=== PATIENT | female | born 1960 | race Two or more races ===

== ENCOUNTER 2024-11-11 21:56 | Inpatient (IN) | payer OTHER ==
[~2024-11-11] VITALS: Ht 152.4 cm; Wt 83.0 kg
[2024-11-11] MEDS ORDERED: HUMULIN N100 UNIT/2 SUBCUTANEO (22:03)
[2024-11-11] MEDS ORDERED: GLIPIZIDE XL10 MG PO (22:04)
[2024-11-11] MEDS ORDERED: HORIZANT300 MG PO (22:06)
[2024-11-11] MEDS ORDERED: COZAAR25 MG PO (22:06)
[2024-11-11] MEDS ORDERED: SYNJARDY 12.5-1 EACH PO (22:06)
--- NOTE | 2024-11-11 22:07 | NUR ---
SE RECIBE PTE FEMENINA ALERTA Y ORIENTADA X3 EN AMBULANCIA REFIERE CELLULLITIS EN RODILLA R+, AREA CON ERITEMA Y EDEMA DESDE HACE CUATRO HICKS. SE MICHAEL S/V Y SE UBICA.
[2024-11-12] MEDS ORDERED: CIPROFLOXACIN IN 5 % DEXTROSE 400 MG/200 ML PIGGYBAG IV STA (00:17)
[2024-11-12] MEDS ORDERED: CIPROFLOXACIN IN 5 % DEXTROSE 400 MG/200 ML PIGGYBAG IV ONE (00:52)
--- NOTE | 2024-11-12 00:53 | NUR ---
SE ORIENTA A PTE SOBRE TX MEDICO ORDENADO POR . SE REALIZA [place] [facility] DE [facility] LYNETTE ORDEN MEDICA Y BAJO MEDIDAS ASEPTICAS. VENOPUNCION PATENTE BAJANDO IV FLUID POR REGULADOR. PTE PENDIENTE A ESTUDIO.
[2024-11-12 01:37] LABS: PH,URINE 5.5 (5.0-8.0); URINE APPEARANCE Clear; URINE BILIRRUBIN Negative (NEGATIVE); URINE BLOOD Negative; URINE COLOR Yellow; URINE KETONE Trace (NEGATIVE); URINE LEUKOCYTE Trace; URINE NITRATE Positive; URINE PROTEIN 30 (NEGATIVE); URINE UROBILINOGEN 0.2 E.U./dl
[2024-11-12 01:41] LABS: URINE EPITHELIAL CELLS 11.5 uL (0.0-38.8); URINE WBC 122.6 uL (0.0-23.2)
[2024-11-12 01:49] LABS: HEMOGLOBIN 9.2 g/dL (12.0-15.00); MEAN CELL VOLUME 80.2 fL (80.00-100.00); MEAN CORPUSCULAR HEMOGLOBIN 25.4 pg (27.00-32.0); MEAN CORPUSCULAR HGB CONC 31.6 g/dl (32.0-36.0); PLATELET COUNT 395 K/uL (150-450); RED BLOOD COUNT 3.62 M/uL (4.00-6.00); RED CELL DISTRIBUTION WIDTH 19.2 % (11.5-14.5)
[2024-11-12 01:57] LABS: INR < 0.93; PARTIAL THROMBOPLASTIN TIME 25.8 SECONDS (22.0-34.0); PROTHROMBIN TIME 10.1 SECONDS (9.0-11.5)
[2024-11-12 02:01] LABS: ALBUMIN 2.8 gm/dL (3.4-5.0); BILIRUBIN TOTAL 0.23 mg/dL (0.3-1.2); CALCIUM 9.2 mg/dL (8.5-10.1); CREATININE SERUM 1.51 mg/dL (0.55-1.02); GFR 34.48; GLOBULINA 4.5 G/DL (2.4-3.5); POTASSIUM 4.61 mEq/L (3.5-5.1); TOTAL PROTEIN 7.3 gm/dL (6.4-8.2)
[2024-11-12 02:20] LABS: URINE BACTERIA > 9821.5 uL (0.0-1933); URINE CAST 1.32 uL (0.0-1.40); URINE GLUCOSE >=1000 MG/DL (NEGATIVE); URINE RBC 1.6 uL (0.0-20.8)
[2024-11-12 02:28] LABS: ERYTHROCYTE SEDIMENTATION RATE > 130 mm/hr
--- NOTE | 2024-11-12 07:26 | NUR ---
SE RECIBE PACIENTE FEMENINA ALERTA Y ORIENTADA X 3 ESFERAS EN CAMA CON BARANDAS ELEVADAS POR SEGURIDAD. PRESENTANDO BUEN PATRON RESPIRATORIO. H/L EN BRAZO DERECHO AREA VÍCTOR DE EDEMA Y ERITEMA. PENDIENTE CONSULTA CON . SE MANTIENE EN OBSERVACION POR CAMBIOS EN CONDICION MEDICA.
--- NOTE | 2024-11-12 15:00 | NUR ---
SE RECIBE PACIENTE ALERTA Y ORIENTADA X3. LA MISMA EN S/L EN ROSCOEO KISHA # 18 PATENTE Y VÍCTOR DE DOLOR. PACINETE CONSULTADO CON IM POR CELULITIS EN YOSSI [place]
[2024-11-12] MEDS ORDERED: CIPROFLOXACIN IN 5 % DEXTROSE 400 MG/200 ML PIGGYBAG IV SCH (22:00)
[2024-11-12] MEDS ORDERED: VANCOMYCIN HCL 1,000 MG VIAL IV SCH (22:00)
[2024-11-13] MEDS ORDERED: 0.9 % SODIUM CHLORIDE 1,000 ML IV SCH (07:45)
[2024-11-13] MEDS ORDERED: ENOXAPARIN SODIUM 40 MG/0.4 ML SYRINGE SUBCUTANEO SCH (09:00)
[2024-11-13] MEDS ORDERED: FAMOTIDINE/PF 20 MG in 0.9 % SODIUM CHLORIDE 100 ML IV SCH (09:00)
[2024-11-13] MEDS ORDERED: CLINDAMYCIN PHOSPHATE 600 MG in 0.9 % SODIUM CHLORIDE 50 ML IV SCH (13:00)
[2024-11-13 13:05] LABS: CALCIUM 9.2 mg/dL (8.5-10.1); CREATININE SERUM 0.8 mg/dL (0.55-1.02); GFR 71.76; POTASSIUM 5.26 mEq/L (3.5-5.1)
[2024-11-13] MEDS ORDERED: LOSARTAN POTASSIUM 100 MG TABLET PO SCH (13:32)
[2024-11-13] MEDS ORDERED: ATORVASTATIN CALCIUM 20 MG TABLET PO SCH (13:35)
[2024-11-13] MEDS ORDERED: AMIODARONE HCL 200 MG TABLET PO SCH (13:36)
[2024-11-13] MEDS ORDERED: INSULIN LISPRO 1,000 UNIT/10 ML UNITS SUBCUTANEO PRN (13:45)
[2024-11-13] MEDS ORDERED: CARVEDILOL 12.5 MG TABLET PO SCH (17:00)
[2024-11-13] MEDS ORDERED: AMLODIPINE BESYLATE 5 MG TABLET PO SCH (17:00)
[2024-11-13] MEDS ORDERED: levoFLOXacin IN DEXTROSE 5 % 5 MG/ML PIGGYBAG IV SCH (17:00)
[2024-11-13 17:55] VITALS: BP 130/73; O2SAT 96
[2024-11-13] MEDS ORDERED: ONDANSETRON HCL 2 MG/ML VIAL IV PRN (22:00)
[2024-11-14 05:28] LABS: HEMATOCRIT 33.2 % (36.0-45.00); HEMOGLOBIN 10.4 g/dL (12.0-15.00); MEAN CELL VOLUME 81.7 fL (80.00-100.00); MEAN CORPUSCULAR HEMOGLOBIN 25.6 pg (27.00-32.0); MEAN CORPUSCULAR HGB CONC 31.3 g/dl (32.0-36.0); PLATELET COUNT 442 K/uL (150-450); RED BLOOD COUNT 4.06 M/uL (4.00-6.00); RED CELL DISTRIBUTION WIDTH 18.5 % (11.5-14.5)
[2024-11-14 08:55] VITALS: BP 142/66; O2SAT 98
[2024-11-14] MEDS ORDERED: ACETAMINOPHEN 500 MG GEL..CAP PO PRN (13:45)
[2024-11-14] MEDS ORDERED: INSULIN LISPRO 1,000 UNIT/10 ML UNITS SUBCUTANEO PRN (16:00)
[2024-11-14 18:16] VITALS: BP 130/72; O2SAT 96
[2024-11-14] MEDS ORDERED: INSULIN GLARGINE,HUM.REC.ANLOG 1,000 UNITS/10 ML UNITS SUBCUTANEO SCH ×2 (21:00)
[2024-11-15 00:39] VITALS: BP 139/62
[2024-11-15] MEDS ORDERED: levoFLOXacin IN DEXTROSE 5 % 5 MG/ML PIGGYBAG IV SCH (09:00)
[2024-11-15 09:32] VITALS: BP 158/65; O2SAT 97
[2024-11-15 09:52] LABS: HEMATOCRIT 29.4 % (36.0-45.00); HEMOGLOBIN 9.3 g/dL (12.0-15.00); MEAN CELL VOLUME 81.2 fL (80.00-100.00); MEAN CORPUSCULAR HEMOGLOBIN 25.5 pg (27.00-32.0); MEAN CORPUSCULAR HGB CONC 31.5 g/dl (32.0-36.0); PLATELET COUNT 370 K/uL (150-450); RED BLOOD COUNT 3.63 M/uL (4.00-6.00); RED CELL DISTRIBUTION WIDTH 18.8 % (11.5-14.5)
[2024-11-15 11:38] LABS: CALCIUM 8.8 mg/dL (8.5-10.1); CREATININE SERUM 0.69 mg/dL (0.55-1.02); GFR 85.12; POTASSIUM 4.77 mEq/L (3.5-5.1)
[2024-11-15 17:30] VITALS: BP 155/72; O2SAT 95
[2024-11-15] MEDS ORDERED: FAMOtidine 20 MG TABLET PO SCH (21:00)
[2024-11-16 01:11] VITALS: BP 140/65; O2SAT 98
[2024-11-16 07:43] LABS: CALCIUM 8.9 mg/dL (8.5-10.1); CREATININE SERUM 0.66 mg/dL (0.55-1.02); GFR 89.6; POTASSIUM 4.66 mEq/L (3.5-5.1)
[2024-11-16 09:25] VITALS: BP 135/73; O2SAT 100
[2024-11-16 17:44] VITALS: BP 146/65; O2SAT 94
[2024-11-17 02:18] VITALS: BP 150/56; O2SAT 95
[2024-11-17] MEDS ORDERED: INSULIN NPH HUM/REG INSULIN HM 1,000 UNIT/10 ML UNITS SUBCUTANEO SCH (08:00)
[2024-11-17 10:47] VITALS: BP 157/69; O2SAT 96
[2024-11-17 17:29] VITALS: BP 134/77; O2SAT 94
[2024-11-18 01:44] VITALS: BP 151/74; O2SAT 97
[2024-11-18 08:00] VITALS: BP 166/84; O2SAT 95
[2024-11-18 17:42] VITALS: BP 183/72; O2SAT 94
[2024-11-19 03:07] VITALS: BP 160/73; O2SAT 95
[2024-11-19] MEDS ORDERED: CLINDAMYCIN PHOSPHATE 150 MG/ML (600mg) ONE (08:09)
[2024-11-19 09:08] VITALS: BP 161/73; O2SAT 98
[2024-11-19 17:24] VITALS: BP 106/59; O2SAT 92
[2024-11-19] MEDS ORDERED: SODIUM CL 0.9% 50 ML IV.SOLN IV ONE (20:04)
[2024-11-20 03:07] VITALS: BP 151/74; O2SAT 92
[2024-11-20] MEDS ORDERED: CLINDAMYCIN PHOSPHATE 150 MG/ML (600mg) ONE (08:24)
[2024-11-20 11:22] VITALS: BP 163/73
[2024-11-20 11:36] LABS: HEMATOCRIT 33.3 % (36.0-45.00); HEMOGLOBIN 10.6 g/dL (12.0-15.00); MEAN CELL VOLUME 80.3 fL (80.00-100.00); MEAN CORPUSCULAR HEMOGLOBIN 25.6 pg (27.00-32.0); MEAN CORPUSCULAR HGB CONC 31.9 g/dl (32.0-36.0); PLATELET COUNT 448 K/uL (150-450); RED BLOOD COUNT 4.15 M/uL (4.00-6.00); RED CELL DISTRIBUTION WIDTH 19.4 % (11.5-14.5)
[2024-11-20 12:51] LABS: CALCIUM 9.1 mg/dL (8.5-10.1); CREATININE SERUM 0.57 mg/dL (0.55-1.02); GFR 106.12; POTASSIUM 4.82 mEq/L (3.5-5.1)
[2024-11-20 18:48] VITALS: BP 161/78
[2024-11-21 02:52] VITALS: BP 111/65; O2SAT 93
[2024-11-21] MEDS ORDERED: INSULIN NPH HUM/REG INSULIN HM 1,000 UNIT/10 ML UNITS SUBCUTANEO SCH (08:00)
[2024-11-21] MEDS ORDERED: CLINDAMYCIN PHOSPHATE 600 MG in 0.9 % SODIUM CHLORIDE 50 ML IV SCH (09:00)
[2024-11-21 09:43] VITALS: BP 148/63; O2SAT 95
[2024-11-21 19:14] VITALS: BP 167/72
[2024-11-22 02:25] VITALS: BP 147/68
[2024-11-22] MEDS ORDERED: INSULIN NPH HUM/REG INSULIN HM 1,000 UNIT/10 ML UNITS SUBCUTANEO SCH ×2 (08:00→17:00)
[2024-11-22 08:49] VITALS: BP 160/80
[2024-11-22] MEDS ORDERED: INSULIN NPH HUM/REG INSULIN HM 1,000 UNIT/10 ML UNITS SUBCUTANEO STA (10:19)
[2024-11-22] MEDS ORDERED: INSULIN LISPRO 1,000 UNIT/10 ML UNITS SUBCUTANEO SCH (17:00)
[2024-11-22 19:44] VITALS: BP 157/65; O2SAT 96
[2024-11-23 01:00] VITALS: BP 163/54; O2SAT 98
[2024-11-23 08:43] VITALS: BP 155/65
[2024-11-23 19:18] VITALS: BP 124/64
== END 2024-11-23 14:05 | disposition designated cancer center or children's hospital (05) | DRG 560 ==
LOC: ER 21:59 → MEDJ 11-12 21:56
PROVIDERS: General Practice; ADMIT Student in an Organized Health Care Education/Training Program; ATTEND Student in an Organized Health Care Education/Training Program
PROC: BL31ZZZ Magnetic Resonance Imaging (MRI) of Lower Extremity Connective Tissue (ICD-10-PCS; principal; 2024-11-13)
PROC: BL31YZZ Magnetic Resonance Imaging (MRI) of Lower Extremity Connective Tissue using Other Contrast (ICD-10-PCS; 2024-11-13)
PROC: CP1D1ZZ Planar Nuclear Medicine Imaging of Left Lower Extremity using Technetium 99m (Tc-99m) (ICD-10-PCS; 2024-11-16)
DX: T84.53XA Infection and inflammatory reaction due to internal right knee prosthesis, initial encounter (principal); L02.415 Cutaneous abscess of right lower limb; M96.840 Postprocedural hematoma of a musculoskeletal structure following a musculoskeletal system procedure; L03.115 Cellulitis of right lower limb; N39.0 Urinary tract infection, site not specified; N17.9 Acute kidney failure, unspecified; E11.65 Type 2 diabetes mellitus with hyperglycemia; D72.829 Elevated white blood cell count, unspecified; E87.5 Hyperkalemia; B96.20 Unspecified Escherichia coli [E. coli] as the cause of diseases classified elsewhere; I12.9 Hypertensive chronic kidney disease with stage 1 through stage 4 chronic kidney disease, or unspecified chronic kidney disease; N18.9 Chronic kidney disease, unspecified; Z79.4 Long term (current) use of insulin; Z88.1 Allergy status to other antibiotic agents; Z88.0 Allergy status to penicillin; Z79.84 Long term (current) use of oral hypoglycemic drugs
CPT/HCPCS: 73725